=== PATIENT | female | born 1975 | race Asian ===

== ENCOUNTER 2023-07-29 09:59 | Inpatient (IN) | payer MEDICAID ==
[~2023-07-29] VITALS: Ht 152.4 cm; Wt 61.4 kg
[2023-07-29] VITALS (15 sets, daily range): BP systolic 140–186; BP diastolic 86–104; PULSE 66–92; RESP 13–16; TEMP 97.8–98.1; O2SAT 94–100
[2023-07-29] MEDS: morphine 4 MG/ML inj SYRINge IV ONE (10:40)
[2023-07-29] MEDS: normal saline 1000ml 1,000 ML IV SCH ×2 (10:51→12:26)
[2023-07-29 11:08] LABS: BASOPHILS % (AUTO) 0.2 % (0-1); EOSINOPHILS % (AUTO) 0.1 % (0-6); HEMATOCRIT 40.4 % (35.0-45.0); HEMOGLOBIN 12.6 g/dl (12.0-16.0); LYMPHOCYTES # (AUTO) 1.4 X10'3 (1.1-4.8); LYMPHOCYTES % (AUTO) 10.2 % (21-51); MEAN CORPUSCULAR HEMOGLOBIN 22.2 PG (27.0-31.0); MEAN CORPUSCULAR HGB CONC 31.1 g/dL (33.0-36.5); MEAN CORPUSCULAR VOLUME 71.2 FL (78-98); MEAN PLATELET VOLUME 7.7 FL (7.4-10.4); MONOCYTES # (AUTO) 0.6 X10'3 (0-0.9); MONOCYTES % (AUTO) 4.6 % (2-12); NEUTROPHILS # (AUTO) 11.6 X10'3 (1.8-7.7); NEUTROPHILS % (AUTO) 84.9 % (42-75); PLATELET COUNT 240 X10'3 (140-440); RED BLOOD COUNT 5.68 X10'6 (4.20-5.60); RED CELL DISTRIBUTION WIDTH 14.2 % (11.5-14.5); WHITE BLOOD COUNT 13.6 X10'3 (4.5-11.0)
[2023-07-29 11:25] LABS: ALANINE AMINOTRANSFERASE 70 U/L (12-78); ALBUMIN 3.6 G/DL (3.4-5.0); ALBUMIN/GLOBULIN RATIO 0.8 (1.1-1.5); ALKALINE PHOSPHATASE 73 IU/L (46-116); ANION GAP 11 (8-16); ASPARTATE AMINO TRANSFERASE 36 U/L (10-37); BLOOD UREA NITROGEN 7 MG/DL (7-18); CALCIUM 8.6 MG/DL (8.5-10.1); CHLORIDE 105 MMOL/L (99-107); CREATININE 0.78 MG/DL (0.40-0.90); GLUCOSE 128 MG/DL (70-104); LIPASE 27 U/L (16-77); POTASSIUM 3.6 MMOL/L (3.5-5.1); SODIUM 141 MMOL/L (135-145); TOTAL CARBON DIOXIDE 25.5 MMOL/L (24-32); TOTAL PROTEIN 8.2 G/DL (6.4-8.2); eCRCL 63 ML/MIN; eGFR 78 ML/MIN
[2023-07-29] MEDS ORDERED: potassium Cl 20 mEq SR tablet PO PRN ×2 (11:35)
[2023-07-29] MEDS ORDERED: magnesium Cl slow-release 64mg tablet PO PRN (11:35)
[2023-07-29] MEDS ORDERED: magnesium 4gm in 100ml NS 100 ML IV PRN (11:35)
[2023-07-29] MEDS ORDERED: magnesium 2GM in 50ml NS 50 ML IV PRN (11:35)
[2023-07-29] MEDS ORDERED: morphine 2 MG/ML inj. syringe IV PRN ×3 (11:35→22:45)
[2023-07-29] MEDS ORDERED: potassium Cl 40MEQ/1/2NS 520ml 520 ML IV PRN (11:35)
[2023-07-29 12:45] LABS: INR 1.1 INR; PROTHROMBIN TIME 11.5 SECONDS (9.0-12.0)
[2023-07-29 17:56] LABS: URINE HCG NEGATIVE (NEG)
[2023-07-29] MEDS ORDERED: BUPIVAcaine 2.5mg/ml inj 50ml vial (contains preservative) ONE (19:58)
[2023-07-29] MEDS ORDERED: dexamethasone sod phosphate 10mg/ml inj ONE (20:14)
[2023-07-29] MEDS ORDERED: sevoflurane 250ml liquid IH ONE (20:14)
[2023-07-29] MEDS ORDERED: midazolam 1 mg/ML 2ml injection ONE (20:22)
[2023-07-29] MEDS ORDERED: fentaNYL/PF 50MCG/1 ML 2ML syringe ONE (20:22)
[2023-07-29] MEDS ORDERED: propofol inj 20 ML IV ONE (20:32)
[2023-07-29] MEDS ORDERED: ceFOXitin 1000 MG inj ONE ×2 (20:33)
[2023-07-29] MEDS ORDERED: rocuronium 10mg/ml inj IV ONE (20:48)
[2023-07-29] MEDS ORDERED: proCHLORperazine 10 MG/2 ml inj IV PRN (20:55)
[2023-07-29] MEDS ORDERED: ringers solution, lacted 1,000 ML IV SCH (20:55)
[2023-07-29] MEDS ORDERED: ondansetron/PF 4mg/2ml inj IV PRN ×3 (20:55→22:45)
[2023-07-29] MEDS ORDERED: meperidine/PF 25mg/ml syringe IV PRN ×5 (20:55→22:45)
[2023-07-29] MEDS: K and/or MAG REPLACEMENT MC SCH (20:57)
[2023-07-29] MEDS: BUPIVAcaine/PF 2.5 mg/ml (0.25%) 30ml vial IJ ONE (21:08)
[2023-07-29] MEDS ORDERED: acetaminophen 1,000mg/100ml IV 100 ML IV ONE (21:36)
[2023-07-29] MEDS ORDERED: ondansetron/PF 4mg/2ml inj ONE (21:40)
[2023-07-29] MEDS ORDERED: neostigmine methylsulfate 1 MG/ML 10ml vial ONE (21:45)
[2023-07-29] MEDS ORDERED: glycopyrrolate 0.2mg/ml inj ONE (21:46)
[2023-07-29] MEDS ORDERED: naloxone 0.4 mg/ml inj IV PRN (21:50)
[2023-07-29] MEDS ORDERED: HYDROcodone/acetaminophen 5mg/325mg tablet PO PRN (21:50)
[2023-07-29] MEDS ORDERED: levoFLOXACIN-Levaquin 500mg/D5 100 ML IV SCH (22:00)
[2023-07-29] MEDS ORDERED: hydrALAZINE 20mg/ml inj. IV PRN (22:10)
[2023-07-29] MEDS: morphine 4 MG/ML inj SYRINge IV PRN (22:22)
[2023-07-29] MEDS: labetalol 20mg/4ml (5mg/ml) syringe IV PRN (22:28)
[2023-07-29] MEDS ORDERED: morphine 4 MG/ML inj SYRINge IV PRN (22:45)
[2023-07-29] MEDS: meperidine/PF 25mg/ml syringe IV PRN (22:49)
[2023-07-29] MEDS: levoFLOXACIN-Levaquin 500mg/D5 100 ML IV SCH (23:23)
[2023-07-29] MEDS: metroNIDAZOLE-Flagyl 500mg/NS 100 ML IV SCH (23:37)
[2023-07-30] VITALS (12 sets, daily range): BP systolic 123–151; BP diastolic 75–88; PULSE 71–82; RESP 12–16; TEMP 98.1–98.8; O2SAT 93–98
[2023-07-30] MEDS: ondansetron/PF 4mg/2ml inj IV PRN (04:58)
[2023-07-30 06:04] LABS: BASOPHILS % (AUTO) 0.1 % (0-1); EOSINOPHILS % (AUTO) 0 % (0-6); HEMATOCRIT 37.8 % (35.0-45.0); HEMOGLOBIN 12.1 g/dl (12.0-16.0); LYMPHOCYTES % (AUTO) 10.6 % (21-51); MEAN CORPUSCULAR HEMOGLOBIN 22.9 PG (27.0-31.0); MEAN CORPUSCULAR HGB CONC 32.1 g/dL (33.0-36.5); MEAN CORPUSCULAR VOLUME 71.2 FL (78-98); MEAN PLATELET VOLUME 8.4 FL (7.4-10.4); MONOCYTES # (AUTO) 0.1 X10'3 (0-0.9); NEUTROPHILS # (AUTO) 8.2 X10'3 (1.8-7.7); NEUTROPHILS % (AUTO) 88.3 % (42-75); PLATELET COUNT 257 X10'3 (140-440); RED BLOOD COUNT 5.31 X10'6 (4.20-5.60); RED CELL DISTRIBUTION WIDTH 14.3 % (11.5-14.5); WHITE BLOOD COUNT 9.3 X10'3 (4.5-11.0)
[2023-07-30 06:14] LABS: ALBUMIN 3.1 G/DL (3.4-5.0); ANION GAP 11 (8-16); BLOOD UREA NITROGEN 7 MG/DL (7-18); BUN/CREATININE RATIO 9.3 (10.0-20.0); CALCIUM 8.6 MG/DL (8.5-10.1); CHLORIDE 107 MMOL/L (99-107); CREATININE 0.75 MG/DL (0.40-0.90); GLUCOSE 143 MG/DL (70-104); MAGNESIUM 1.8 MG/DL (1.5-2.4); POTASSIUM 3.6 MMOL/L (3.5-5.1); SODIUM 142 MMOL/L (135-145); eCRCL 65 ML/MIN; eGFR 82 ML/MIN
[2023-07-30] MEDS ORDERED: ketorolac trometh. 30mg/ml inj. IV SCH (20:00)
[2023-07-30] MEDS: ketorolac trometh. 30mg/ml inj. IV PRN (22:12)
[2023-07-31 06:48] VITALS: BP 139/88; PULSE 66; RESP 14; TEMP 98; O2SAT 95
[2023-07-31 07:41] LABS: BASOPHILS % (AUTO) 0.3 % (0-1); EOSINOPHILS % (AUTO) 0.1 % (0-6); HEMATOCRIT 33.8 % (35.0-45.0); HEMOGLOBIN 10.8 g/dl (12.0-16.0); LYMPHOCYTES # (AUTO) 2.3 X10'3 (1.1-4.8); LYMPHOCYTES % (AUTO) 27.6 % (21-51); MEAN CORPUSCULAR HEMOGLOBIN 22.6 PG (27.0-31.0); MEAN CORPUSCULAR HGB CONC 32.1 g/dL (33.0-36.5); MEAN CORPUSCULAR VOLUME 70.5 FL (78-98); MEAN PLATELET VOLUME 8.2 FL (7.4-10.4); MONOCYTES # (AUTO) 0.5 X10'3 (0-0.9); MONOCYTES % (AUTO) 6.1 % (2-12); NEUTROPHILS # (AUTO) 5.4 X10'3 (1.8-7.7); NEUTROPHILS % (AUTO) 65.9 % (42-75); PLATELET COUNT 188 X10'3 (140-440); RED CELL DISTRIBUTION WIDTH 14.6 % (11.5-14.5); WHITE BLOOD COUNT 8.2 X10'3 (4.5-11.0)
[2023-07-31 07:48] LABS: ALBUMIN 2.8 G/DL (3.4-5.0); ANION GAP 7 (8-16); BLOOD UREA NITROGEN 10 MG/DL (7-18); BUN/CREATININE RATIO 12.8 (10.0-20.0); CALCIUM 7.8 MG/DL (8.5-10.1); CHLORIDE 109 MMOL/L (99-107); CREATININE 0.78 MG/DL (0.40-0.90); GLUCOSE 89 MG/DL (70-104); MAGNESIUM 1.9 MG/DL (1.5-2.4); POTASSIUM 3.3 MMOL/L (3.5-5.1); SODIUM 144 MMOL/L (135-145); TOTAL CARBON DIOXIDE 27.6 MMOL/L (24-32); eCRCL 63 ML/MIN; eGFR 78 ML/MIN
[2023-07-31 08:00] VITALS: RESP 16
== END 2023-07-31 13:17 | disposition home or self-care (01) | DRG 234 ==
LOC: ER 10:00 → ED HOLD 11:36 → SUR 3N 17:42
PROVIDERS: ADMIT Internal Medicine; ATTEND Internal Medicine
PROC: 8E0W4CZ Robotic Assisted Procedure of Trunk Region, Percutaneous Endoscopic Approach (ICD-10-PCS; 2023-07-29)
PROC: 0DTJ4ZZ Resection of Appendix, Percutaneous Endoscopic Approach (ICD-10-PCS; principal; 2023-07-29 20:14)
DX: K35.80 Unspecified acute appendicitis (principal); K66.8 Other specified disorders of peritoneum; Z20.822 Contact with and (suspected) exposure to COVID-19; Z88.0 Allergy status to penicillin
CPT/HCPCS: 36415; 80048; 80053; 81025; 82948; 83690; 83735; 85025; 85610; 86885; 86900; 86901; 87081; 87811; 93005; 99285; A4215; A4314; A4618; A7000; G0378; J0131; J0694; J1100; J1885; J1956; J2175; J2250; J2270; J2405; J2704; J2710; J3010; J3490; J7030; J7120